=== PATIENT | male | born 1980 | race Caucasian/White ===

== ENCOUNTER 2022-10-09 22:29 | Emergency (ER) | payer SELFPAY ==
[2022-10-09 22:37] VITALS: BP 139/88; PULSE 84; RESP 18; TEMP 36.7; O2SAT 99; BMI 28.5
--- NOTE | 2022-10-09 22:56 | CRLHL7_ITS ---
For Patients: As a result of the Century Cures Act, medical imaging exams and procedure reports are released immediately into your electronic medical record. You may view this report before your referring provider. If you have questions, please contact your health care provider. INDICATION: Fall. TECHNIQUE: CT lumbar spine without contrast. COMPARISON: None. FINDINGS: Vertebrae: Alignment is normal. Subtle height loss along the superior endplates of T12 and L1. There are no displaced fractures or suspicious bony lesions. Discs and facet joints: Disc spaces and facets are within normal limits. Extraspinal findings: Prevertebral soft tissues and visualized retroperitoneum are unremarkable. IMPRESSION: Subtle height loss of the superior endplates of T12 and L1 which could suggest minimal compression fracture. Recommend correlation with point tenderness. Otherwise, no acute displaced fractures. Please note that all CT scans at this facility use dose modulation, iterative reconstruction, and/or weight-based dosing when appropriate to reduce radiation dose to as low as reasonably achievable. Dictated by Aneesh Holbrook MD @ 10/09/2022 11:26:55 PM (Electronically Signed)
[2022-10-09] MEDS: KETOROLAC 30 MG/ML inj IM (23:19)
[2022-10-09] MEDS: OXYCODONE 5 MG TABLET PO (23:20)
[2022-10-10 00:09] VITALS: BP 125/78; PULSE 89; RESP 18; TEMP 36.8; O2SAT 99
[2022-10-10 00:11] VITALS: BP 125/78; PULSE 89; RESP 18; TEMP 36.8
--- NOTE | 2022-10-28 13:12 | ED.GENADULT ---
HPI - General Adult General Date Seen: 10/09/22 Chief complaint: Back Injury/Pain Stated complaint: fell on his back in pain. Time Seen by Provider: 10/09/22 22:43 Source: patient and family Mode of arrival: ambulatory Limitations: language barrier History of Present Illness HPI narrative: Patient is a 42-year-old male who presents for evaluation of low back pain. He slipped on the ice this morning and complains of pain in the low back and left low back since then. It is painful to walk. He does not have radiating pain. No numbness or weakness. Pain has been severe since this morning. He speaks primarily Tristanian, his is helping to interpret. Related Data Home Medications Medication Instructions Recorded Confirmed ibuprofen 400 mg tablet 400 mg PO Q8H PRN 07/17/22 10/09/22 Allergies Allergy/AdvReac Type Severity Reaction Status Date / Time No Known Drug Allergies Allergy Verified 10/09/22 22:40 Review of Systems Status of ROS: Reports: 10 or more systems reviewed and unremarkable except as noted in History and below [facility] Medical History Plantar fasciitis of right foot Stroke Jessie-Trejo syndrome Surgical History History of shoulder surgery Social History Smoking Status: Current every day smoker Do you use any of these nicotine containing products: None Second hand tobacco smoke exposure: No How often do you have a drink containing alcohol: never How often do you have six or more drinks on one occasion: Never AUDIT-C Alcohol total score: 0 Non-prescribed substance use: denies use Exam Narrative: Exam Narrative: Vital signs as noted above. In general, an alert, well-appearing patient. Head: Normocephalic, atraumatic. Eyes: Pupils are equal reactive. Extraocular movements are full. Conjunctivae are normal. ENT: Mucous membranes are moist. Throat is normal. Neck: Supple without lymphadenopathy. Heart: Regular rate and rhythm. No murmur or rub. Lungs: Clear bilaterally. No increased work of breathing, crackles or wheezes. Abdomen: Soft and nontender. No organomegaly. Back: Tenderness over the midline in the low lumbar region over L5-S1. He does not have tenderness over the spine more proximally. Straight leg raise is negative. Extremities: Well perfused. No edema. No calf tenderness. Pulses intact. Neurologic: Patient is alert and oriented to person and place. Speech is fluent. Face is symmetric. Moves all extremities equally. Strength is 5 5 in bilateral lower extremities. Affect: Normal. Skin: Warm and dry. Well perfused. Course Course Hospital Course: Given trauma and pain over the midline spine I elected to do imaging in the form of CT scan. CT of the lumbar spine is read by Radiology as showing slight loss of height of the T12 and L1 vertebrae of indeterminate age. They recommend clinical correlation. Given that he does not have pain or tenderness there, I do not think that that is likely acute. Symptoms are likely muscular in nature. He had Toradol and an oxycodone orally here. Is feeling improved. For home, I have recommended a combination of ibuprofen and Tylenol as baseline pain measures. Muscle relaxer as needed. Primary care follow-up if not responding to hurt of measures. Return for radiating pain, severe uncontrolled pain, weakness, numbness. Ice, relative rest. Return to activities as able. Vital Signs Vital signs: Initial Vital Signs Temperature 98.0 F 10/09/22 22:37 Temperature Source Temporal Artery Scan 10/09/22 22:37 Pulse Rate 84 10/09/22 22:37 Respiratory Rate 18 10/09/22 22:37 Blood Pressure 139/88 10/09/22 22:37 Blood Pressure Mean 105 10/09/22 22:37 Blood Pressure Position Sitting 10/09/22 22:37 Pulse Oximetry 99 10/09/22 22:37 Oxygen Delivery Method 10/09/22 22:37 Vital Signs Temperature 98.0 F 10/09/22 22:37 Pulse Rate 84 10/09/22 22:37 Respiratory Rate 18 10/09/22 22:37 Blood Pressure 139/88 10/09/22 22:37 Pulse Oximetry 99 10/09/22 22:37 Oxygen Delivery Method 10/09/22 22:37 Temperature 98.2 F 10/10/22 00:11 Pulse Rate 89 10/10/22 00:11 Respiratory Rate 18 10/10/22 00:11 Blood Pressure 125/78 10/10/22 00:11 Pulse Oximetry 99 10/10/22 00:09 Oxygen Delivery Method 10/10/22 00:09 Discharge Plan Discharge Clinical Impression: Low back pain Patient Disposition: Home, Self-Care Condition: Improved Instructions: Acute Low Back Pain (ED) Additional Instructions: Ibuprofen, 400 mg plus Tylenol, 1000 mg 3 times daily with food for the next 1-2 weeks as needed. Ice, rest. Primary care follow-up if not improving with conservative measures. Return for severe uncontrolled pain, weakness, numbness, radiating pain, or other acute worsening. Muscle relaxer as needed. Ibuprofeno 400 mg m?s Tylenol 1000 mg 3 veces al d?a con alimentos patrick las pr?ximas 1 a 2 semanas seg?n sea necesario. Chandaojaylene. Seguimiento desde atenci?n primaria si no mejora con medidas conservadoras. Regrese por dolor intenso no controlado, debilidad, entumecimiento, dolor irradiado u otro empeoramiento litzy. Relajante muscular seg?n necesidad. Prescriptions: No Action ibuprofen 400 mg tablet 400 mg PO Q8H PRN Follow Up/Referrals: Provider,Not a Local [Primary Care Provider] - Stand Alone Forms: [employer] Info Instructions
== END 2022-10-10 00:12 | disposition home or self-care (01) ==
PROVIDERS: Emergency Provider Emergency Medicine
DX: M54.50 Low back pain, unspecified (principal)
CPT/HCPCS: 72131; 96372; 99283; 99284; A9270; J1885

== ENCOUNTER 2023-09-06 10:09 | Emergency (ER) | payer MEDICAID, SELFPAY ==
[2023-09-06 10:15] VITALS: BP 122/73; PULSE 83; RESP 18; TEMP 36; O2SAT 95; BMI 25.8
--- NOTE | 2023-09-06 11:10 | ED_ITS ---
HPI - Skin/Abscess/Foreign Bdy General Time Seen by Provider: 11:10 Date Seen: 09/06/23 Chief complaint: Skin/Abscess/Foreign Body Stated complaint: stepped on a keith nail Time Seen by Provider: 09/06/23 10:18 Source: patient Mode of arrival: ambulatory Limitations: no limitations (Significant other, interprets for him.) History of Present Illness HPI narrative: Patient is a very pleasant gentleman previously healthy with a tetanus that he believes was greater than 20 years ago who comes to the emergency room for evaluation of a puncture wound to his foot. Patient was noted to be walking around his house where he is renovating and stepped on a large nail that went through his shoe, through the inserts in his shoe and into the sole of his foot. He is showing this to be between the 1st and 2nd metatarsals at the proximal aspect of the metatarsal heads. Again, this occurred last night. He has not had any fevers or chills but does report pain in the area. Is not taken any medications for discomfort. He has not noticed any drainage or unusual redness in this area. He denies being a diabetic. 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) Plantar fasciitis of right foot ?M72.2 - Plantar fascial fibromatosis (ICD-10) Stroke ?I63.9 - Cerebral infarction, unspecified (ICD-10) Surgical History History of shoulder surgery ?Z98.890 - Other specified postprocedural states (ICD-10) Social History Smoking Status: Current every day smoker What tobacco products do you use: cigarettes Smoking packs per day: 0.25 Smoking cigarettes per day: 5.0 Do you use any of these nicotine containing products: None Second hand tobacco smoke exposure: No How often do you have a drink containing alcohol: 2-3 times a week How many standard drinks containing alcohol do you have on a typical day: 5 or 6 How often do you have six or more drinks on one occasion: Weekly AUDIT-C Alcohol total score: 8 Non-prescribed substance use: denies use service: No Exam Narrative: Exam Narrative: Patient is very pleasant gentleman in no acute distress. His accompanies him and is very loving and supportive. Patient is nontoxic in appearance. We do remove his sock to show that there is a 2-3 mm puncture wound on the sole of his foot between the 1st and 2nd metatarsals. Just proximal to the metatarsal heads. There is no drainage her unusual erythema. There is no crepitus. He is able to flex and extend his toes without any pain. However, when I do palpate distal to the area there is increased discomfort. It is not a through and through puncture. Const: Vital Signs, click to edit/add: Vital Signs - 24 hr 09/06/23 10:15 Temperature 96.8 F L Pulse Rate [Pulse Oximeter] 83 Respiratory Rate 18 Blood Pressure [Ri ght Upper Arm] 122/73 Pulse Oximetry 95 Oxygen Delivery Me thod Room Air Documenting provider has reviewed patient's vital signs: yes Course Course ED Course: At this time with a tetanus greater than 20 years ago patient may be a candidate for IgG. However I now receive information from nursing that last tetanus was 2013. Therefore patient will receive at a cell today. I did discuss with him the tetanus diptheria and per test this coverage with this injection. Given the fact that he is high risk for infection as the nail did go through a shoe I will be placing him on prophylactic antibiotics. He is not allergic to any antibiotics. Vital Signs Vital signs: Initial Vital Signs Temperature 96.8 F L 09/06/23 10:15 Temperature Source Temporal Artery Scan 09/06/23 10:15 Pulse Rate 83 09/06/23 10:15 Pulse Rhythm Regular 09/06/23 10:15 Respiratory Rate 18 09/06/23 10:15 Blood Pressure 122/73 09/06/23 10:15 Blood Pressure Mean 89 09/06/23 10:15 Blood Pressure Position Supine 09/06/23 10:15 Pulse Oximetry 95 09/06/23 10:15 Oxygen Delivery Method Room Air 09/06/23 10:15 Vital Signs Temperature 96.8 F L 09/06/23 10:15 Pulse Rate 83 09/06/23 10:15 Respiratory Rate 18 09/06/23 10:15 Blood Pressure 122/73 09/06/23 10:15 Pulse Oximetry 95 09/06/23 10:15 Oxygen Delivery Method Room Air 09/06/23 10:15 Temperature 96.8 F L 09/06/23 10:15 Pulse Rate 83 09/06/23 10:15 Respiratory Rate 18 09/06/23 10:15 Blood Pressure 122/73 09/06/23 10:15 Pulse Oximetry 95 09/06/23 10:15 Oxygen Delivery Method Room Air 09/06/23 10:15 MDM - Skin/Abscess/Foreign Bdy MDM Narrative Medical decision making narrative: 1. Right foot puncture wound-no evidence of drainage or infection today. Patient is instructed to keep this clean and dry. Will place him on crutches so that there is not significant weight-bearing. Would ask that he do use prophylactic antibiotics Levaquin 750 mg daily for 5 days. I did discuss risks including tendinitis and ruptured Achilles tendon when taking this medication. They do understand those risks. 2. Disposition-home at this time. Return for fever, chills, worsening symptoms and as needed. Medical Records Attestation: I reviewed the patient's medical records. Imaging Data Foot x-ray: Attestation: I have reviewed the pertinent imaging results. My impression: I do not note any unusual findings on the x-ray. Radiologist's impression: Spurring at the 1st MTP joint noted. Plantar and posterior calcaneal spurs. Mild hammertoe deformity suspected. No foreign body or soft tissue gas. No fracture. Impression: No sign of acute injury. Discharge Plan Discharge Clinical Impression: Puncture wound Patient Disposition: Home, Self-Care Condition: Unchanged Additional Instructions: Start antibiotic today. Try to limit walking on the foot. Crutches to help keep weight off your foot. Seek medical attention for worsening symptoms such as fever, chills, drainage from this area. Keep the foot clean. Return as needed. Your last tetanus was in 2013. Your tetanus was updated today. Prescriptions: New levofloxacin 750 mg tablet 750 mg PO DAILY 5 Days Qty: 5 0RF Follow Up/Referrals: Provider,Not a Local [Primary Care Provider] - Stand Alone Forms: [employer] Info Instructions
--- NOTE | 2023-09-06 11:18 | CRLHL7_ITS ---
For Patients: As a result of the Cures Act, medical imaging exams and procedure reports are released immediately into your electronic medical record. You may view this report before your referring provider. If you have questions, please contact your health care provider. Indication: Penetrating injury Technique: Right foot 3 views Comparison: None Findings: Spurring at the 1st MTP joint noted. Plantar and posterior calcaneal spurs. Mild hammertoe deformity suspected. No foreign body or soft tissue gas. No fracture. Impression: No sign of acute injury. Dictated by Gilmer Villalta MD @ 09/06/2023 11:59:25 AM (Electronically Signed)
[2023-09-06] MEDS: TETANUS/DIPHTH/PERTUSSIS 0.5 ML SYRINGE IM (12:06)
--- NOTE | 2023-09-06 12:22 | ED.NURSE ---
did not want crutches.
== END 2023-09-06 12:14 | disposition home or self-care (01) ==
LOC: ED 11:58
PROVIDERS: Emergency Provider Family Medicine
DX: S91.341A Puncture wound with foreign body, right foot, initial encounter (principal); W45.0XXA Nail entering through skin, initial encounter
CPT/HCPCS: 73620; 90471; 90715; 99283; 99284